=== PATIENT | male | born 1975 | race Caucasian/White ===

== ENCOUNTER 2023-05-22 09:02 | Outpatient (CLI) | payer BC, SELFPAY | END 2023-05-22 09:03 | disposition home or self-care (01) | PROVIDERS: PCP Family Medicine; Visit Provider Family Medicine | DX: E78.00 Pure hypercholesterolemia, unspecified (principal); Z13.228 Encounter for screening for other metabolic disorders | CPT/HCPCS: 80053; 80061 ==

== ENCOUNTER 2023-06-19 08:10 | Outpatient (CLI) | payer BC, SELFPAY ==
--- NOTE | 2023-06-19 09:07 | W.ANESCHARGE ---
Anesthesia Charges Start Date/Time Anesthesia Start Date: 06/19/23 Anesthesia Start Time: 08:41 Stop Date/Time Anesthesia Stop Date: 06/19/23 Anesthesia Stop Time: 09:02
--- NOTE | 2023-06-19 11:04 | W.ANESCHARGE ---
Anesthesia Charges Start Date/Time Anesthesia Start Date: 06/19/23 Anesthesia Start Time: 08:41 Stop Date/Time Anesthesia Stop Date: 06/19/23 Anesthesia Stop Time: 09:02
== END 2023-06-19 08:11 | disposition home or self-care (01) ==
PROVIDERS: PCP Family Medicine; Visit Provider Internal Medicine
DX: Z12.11 Encounter for screening for malignant neoplasm of colon (principal); K63.5 Polyp of colon; K57.30 Diverticulosis of large intestine without perforation or abscess without bleeding
CPT/HCPCS: 00811; 45380; 88305; J2704